=== PATIENT | female | born 1950 ===

== ENCOUNTER 2019-10-23 10:48 | Inpatient (IN) | payer OTHER ==
[~2019-10-23] VITALS: Ht 167.6 cm; Wt 83.9 kg
[2019-10-31] MEDS ORDERED: METOPROLOL PO (08:39)
[2019-10-31] MEDS ORDERED: LOSARTAN POTAS100 MG PO (08:39)
[2019-10-31] MEDS ORDERED: TOPROL XL50 M1 PO (08:40)
[2019-10-31] MEDS ORDERED: ATORVAS PO (08:40)
[2019-10-31] MEDS ORDERED: ATORVASTATIN CA20 MG PO (09:26)
[2019-10-31] MEDS ORDERED: FENOFIBRATE145 MG PO (09:28)
[2019-11-08] MEDS ORDERED: CEFADROXIL500 MG PO (15:07)
[2019-11-08] MEDS ORDERED: PERCOCET 5-3251 EACH PO (15:07)
[2019-11-08] MEDS ORDERED: ELIQUIS2.5 MG PO (15:07)
== END 2019-11-08 18:53 | DRG 470 ==
LOC: SURH 11-06 05:55 → O/R 11-06 05:55 → SURG 11-06 07:15 → SURH 11-06 17:37
PROVIDERS: ADMIT Orthopaedic Surgery
PROC: 0SR90J9 Replacement of Right Hip Joint with Synthetic Substitute, Cemented, Open Approach (ICD-10-PCS; principal; 2019-11-06 11:30)
DX: M16.11 Unilateral primary osteoarthritis, right hip (principal); D62 Acute posthemorrhagic anemia; M70.61 Trochanteric bursitis, right hip; M25.751 Osteophyte, right hip; E03.8 Other specified hypothyroidism; I10 Essential (primary) hypertension

== ENCOUNTER 2023-06-14 06:00 | Day surgery (SDC) | payer OTHER ==
[2023-06-10 10:54] LABS: HEMATOCRIT 41.4 % (36.0-45.00); HEMOGLOBIN 13.3 g/dL (12.0-15.00); MEAN CELL VOLUME 94.3 fL (80.00-100.00); MEAN CORPUSCULAR HEMOGLOBIN 30.2 pg (27.00-32.0); MEAN CORPUSCULAR HGB CONC 32.1 g/dl (32.0-36.0); PLATELET COUNT 146 K/uL (150-450); RED BLOOD COUNT 4.39 M/uL (4.00-6.00); RED CELL DISTRIBUTION WIDTH 13.7 % (11.5-14.5)
[~2023-06-14] VITALS: Ht 167.6 cm; Wt 81.6 kg
[~2023-06-14 06:00] MED LIST: ATORVAS PO; ATORVASTATIN CA20 MG PO; CEFADROXIL500 MG PO; ELIQUIS2.5 MG PO; ESTRA PO; FENOFIBRATE145 MG PO; GABAPENTIN300 M2 PO; LOSARTAN POTAS100 MG PO; METOPROLOL PO; PERCOCET 5-3251 EACH PO; TIROSINT75 MCG PO; TOPROL XL50 M1 PO
[2023-06-14] MEDS ORDERED: FENOFIBRATE160 MG (15:15)
[2023-06-14] MEDS ORDERED: OXYBUTYNIN CHLOR5 MG (15:15)
[2023-06-14] MEDS ORDERED: DODEX1000 MCG/1 (15:16)
[2023-06-14] MEDS ORDERED: LORATADINE10 MG (15:16)
[2023-06-14] MEDS ORDERED: LEVOTHYROXINE50 MCG (15:16)
== END 2023-06-14 16:00 | disposition home or self-care (01) ==
LOC: O/R 06:00 → CIR.AMB 06:00 → SURG-SUITE 06:00 → EDSTATUS 10:15 → SURG-SUITE 13:15 → CIR.AMB 16:00 → O/R 16:00
PROVIDERS: ATTEND Orthopaedic Surgery
DX: M16.12 Unilateral primary osteoarthritis, left hip (principal); Z53.8 Procedure and treatment not carried out for other reasons; I10 Essential (primary) hypertension; Z20.822 Contact with and (suspected) exposure to COVID-19

== ENCOUNTER 2023-06-17 08:22 | Inpatient (IN) | payer OTHER ==
[~2023-06-17] VITALS: Ht 167.6 cm; Wt 81.6 kg
[~2023-06-17 08:22] MED LIST changes: +DODEX1000 MCG/1; +FENOFIBRATE160 MG; +LEVOTHYROXINE50 MCG; +LORATADINE10 MG; +OXYBUTYNIN CHLOR5 MG
[2023-06-17] MEDS ORDERED: ADULT LOW DOSE81 M1 PO (08:44)
[2023-06-17] MEDS ORDERED: HORIZANT300 MG PO (08:45)
[2023-06-17] MEDS ORDERED: HYDROCHLOROTHIA25 MG PO (10:58)
[2023-06-22] MEDS ORDERED: PERCOCET 5-3251 EACH PO (07:51)
[2023-06-22] MEDS ORDERED: DUI500 PO (07:51)
[2023-06-22] MEDS ORDERED: ELIQUIS2.5 MG PO (07:51)
[2023-06-22 08:24] LABS: HEMATOCRIT 33.8 % (36.0-45.00); HEMOGLOBIN 11.6 g/dL (12.0-15.00); MEAN CELL VOLUME 91.7 fL (80.00-100.00); MEAN CORPUSCULAR HEMOGLOBIN 31.5 pg (27.00-32.0); MEAN CORPUSCULAR HGB CONC 34.4 g/dl (32.0-36.0); RED BLOOD COUNT 3.69 M/uL (4.00-6.00); RED CELL DISTRIBUTION WIDTH 13.4 % (11.5-14.5)
[2023-06-22 08:30] LABS: PLATELET COUNT 120 K/uL (150-450)
[2023-06-23 07:26] LABS: HEMATOCRIT 34.1 % (36.0-45.00); HEMOGLOBIN 11.5 g/dL (12.0-15.00); MEAN CORPUSCULAR HEMOGLOBIN 31.1 pg (27.00-32.0); MEAN CORPUSCULAR HGB CONC 33.8 g/dl (32.0-36.0); RED BLOOD COUNT 3.71 M/uL (4.00-6.00); RED CELL DISTRIBUTION WIDTH 13.5 % (11.5-14.5)
[2023-06-23 07:57] LABS: PLATELET COUNT 120 K/uL (150-450)
== END 2023-06-23 18:15 | DRG 470 ==
LOC: O/R 06-21 04:50 → SURG 06-21 08:19 → SURH 06-21 13:25 → SURG 06-21 18:15 → SURH 06-22 01:01
PROVIDERS: ADMIT Orthopaedic Surgery; ATTEND Orthopaedic Surgery
PROC: 0SRB0JZ Replacement of Left Hip Joint with Synthetic Substitute, Open Approach (ICD-10-PCS; principal; 2023-06-21 18:15)
DX: M16.12 Unilateral primary osteoarthritis, left hip (principal); D62 Acute posthemorrhagic anemia; E66.8 Other obesity; E03.9 Hypothyroidism, unspecified; I11.9 Hypertensive heart disease without heart failure; Z96.642 Presence of left artificial hip joint; I48.91 Unspecified atrial fibrillation